=== PATIENT | female | born 1990 | race Two or more races ===

== ENCOUNTER 2016-04-05 20:26 | Emergency (ER) | payer OTHER ==
--- NOTE | 2016-04-05 20:31 | PDOC ---
[id number] sore throat and then right earache worse ear pain today no fever no cough no gi symptoms pmh none exam afebrile op clear assess throat and ear pain to fast track for ear exam and further evaluation *DC/Admit/Observation/Transfer Diagnosis at time of Disposition: Otalgia Qualifiers: Laterality: unspecified laterality Qualified Code(s): H92.09 - Otalgia, unspecified ear - Discharge Dispostion Disposition: HOME Condition at time of disposition: Stable - Referrals Referrals: Ursula العراقي RT [Primary Care Provider] - Jason Resendez MD [Staff Physician] - - Patient Instructions Additional Instructions: PLEASE USE EAR DROPDS X 3 DAYS, IF NO BETTER SEE DR RESENDEZ IN OFFICE - Post Discharge Activity Work/School Note: Back to Work
[2016-04-05 20:33] VITALS: BP 118/64; PULSE 96; TEMP 97.4; BMI 30.7
--- NOTE | 2016-04-05 21:14 | PDOC ---
History of Present Illness - General Chief Complaint: Ear Problem Stated Complaint: EAR PROBLEM Time Seen by Provider: 04/05/16 20:28 History Source: Patient Exam Limitations: No Limitations - History of Present Illness Initial Comments: 04/05/16 21:06 CC SORE THROAT X 1 DAY; NO FEVER; NOW RIGHT EAR PAIN; NO NVD Severity: mild Associated Symptoms: denies: denies symptoms, cough, fever/chills, malaise, nausea/vomiting Past History - Past Medical History Allergies/Adverse Reactions: Allergies Allergy/AdvReac Type Severity Reaction Status Date / Time No Known Allergies Allergy Verified 04/05/16 20:29 Home Medications: Ambulatory Orders NK [No Known Home Medication] 04/05/16 - Psycho/Social/Smoking Cessation Hx Suicidal Ideation: No Smoking History: Never smoked Hx Alcohol Use: No Substance Use Type: None Review of Systems - Review of Systems Constitutional: No: Chills, Fever, Malaise HEENTM: Yes: Ear Pain (MILD PAIN). No: Ear Discharge Respiratory: No: Symptoms reported, Cough Cardiac (ROS): No: Symptoms Reported ABD/GI: No: Symptoms Reported : No: Symptoms Reported Musculoskeletal: No: Symptoms Reported Integumentary: No: Symptoms Reported *Physical Exam - Vital Signs Last Vital Signs Temp Pulse Resp BP Pulse Ox 97.4 F L 96 H 18 118/64 100 04/05/16 20:32 04/05/16 20:32 04/05/16 20:32 04/05/16 20:32 04/05/16 20:32 - Physical Exam General Appearance: Yes: Appropriately Dressed. No: Apparent Distress HEENT: positive: TMs Normal, Other (SMALL AMT OF WAX IN DEEP CANAL; OTHERWISE TM AND CANAL CLEAR; NO TENDERNESS TO TRAGUS TUG). negative: Pharynx Normal, Nasal Congestion, Rhinorrhea, TM Bulging, TM Dull, TM Erythema Medical Decision Making - Medical Decision Making 04/05/16 21:14 WILL TREAT WITH CERUMEX AT HOME; AND FOLLOW UP IN DR CAMACHO *DC/Admit/Observation/Transfer Diagnosis at time of Disposition: Cerumen debris on tympanic membrane Qualifiers: Laterality: right Qualified Code(s): H61.21 - Impacted cerumen, right ear - Discharge Dispostion Disposition: HOME Condition at time of disposition: Stable Admit: No - Referrals Referrals: Ursula العراقي, RT [Primary Care Provider] - Jason Camacho MD [Staff Physician] - - Patient Instructions Additional Instructions: PLEASE USE EAR DROPDS X 3 DAYS, IF NO BETTER SEE DR CAMACHO IN OFFICE - Post Discharge Activity Work/School Note: Back to Work
== END 2016-04-05 22:02 | disposition home or self-care (01) ==
LOC: JERFT 20:26
DX: H61.21 Impacted cerumen, right ear (principal)
CPT/HCPCS: 99281-25